=== PATIENT | male | born 1975 | race Caucasian/White ===

== ENCOUNTER 2017-03-20 16:24 | Emergency (ER) | payer OTHER ==
[2017-03-20 16:36] VITALS: BP 129/83; PULSE 86; TEMP 98.1; BMI 25.8
--- NOTE | 2017-03-20 17:36 | PDOC ---
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 Patient also reports running with his boots on and feels slight discomfort to his right foot proximal to his right large toe. Patient does not have any gross deformity of left elbow or left foot. Patient denies any other injuries. Patient is up-to-date with tetanus. Patient denies any numbness of the left arm , wrist pain or shoulder pain or any pain in fingers left hand. 03/20/17 17:58 03/20/17 18:01 Occurred: reports: just prior to arrival Severity: reports: moderate (LEFT ELBOW PAIN, ABRASION, ) Pain Location: reports: lower extremity (RT. FOOT PROXIMAL TO RT. LARGE TOE), upper extremity (LEFT ELBOW ) Method of Injury: Yes: fall Modifying Factors: improves with: None Loss of Consciousness: no loss of consciousness Associated Symptoms (Fall): denies symptoms Past History - Past Medical History Allergies/Adverse Reactions: Allergies Allergy/AdvReac Type Severity Reaction Status Date / Time No Known Allergies Allergy Verified 03/20/17 16:27 Home Medications: Ambulatory Orders NK [No Known Home Medication] 03/20/17 Other medical history: denies - Suicide/Smoking/Psychosocial Hx Smoking Status: No Smoking History: Never smoked Number of Cigarettes Smoked Daily: 0 Information on smoking cessation initiated: No Hx Alcohol Use: No Drug/Substance Use Hx: No Substance Use Type: Alcohol Review of Systems - Review of Systems Able to Perform ROS?: Yes Constitutional: No: Symptoms Reported HEENTM: No: Symptoms Reported Respiratory: No: Symptoms reported Cardiac (ROS): No: Symptoms Reported ABD/GI: No: Symptoms Reported : No: Symptoms Reported Musculoskeletal: Yes: Joint Pain (LEFT ELBOW, RT. FOOT, PROXIMAL TO LARGE TOE ) Integumentary: Yes: Other (ABRASION LEFT ELBOW QUARTER SIZE) Neurological: No: Symptoms reported *Physical Exam - Vital Signs Last Vital Signs Temp Pulse Resp BP Pulse Ox 98.1 F 86 20 129/83 100 03/20/17 16:28 03/20/17 16:28 03/20/17 16:28 03/20/17 16:28 03/20/17 16:28 - Physical Exam General Appearance: Yes: Appropriately Dressed Neck: negative: Lymphadenopathy (R), Lymphadenopathy (L), Rigidity, Tender lateral, Tender midline Respiratory/Chest: positive: Lungs Clear, Normal Breath Sounds. negative: Chest Tender, Respiratory Distress Cardiovascular: positive: Regular Rhythm, Regular Rate, S1, S2 Vascular Pulses: Dorsalis-Pedis (R): 4+ Musculoskeletal: positive: Normal Inspection. negative: CVA Tenderness, CVA Tenderness (R), CVA Tenderness (L), Decreased Range of Motion, Vertebral Tenderness Extremity: positive: Normal Capillary Refill, Normal Range of Motion (LEFT ELBOW , RT. FOOT PROXIMAL TO LARGE TOE ), Tender (LEFT ELBOW, RT. FOOT PROXIMAL TO RT. LARGE TOE). negative: Normal Inspection (LEFT ELBOW ABRASION), Swelling Integumentary: positive: Other (ABRASION QUARTER SIZE LEFT ELBOW ) Neurologic: positive: Normal Response, Motor Strength 5/5 (UPPER AND LOWER EXTREMITIES), Respond to painful stimul (LEFT ARM, RT. FOOT, LEG ), Responsive. negative: Numbness, Sensory Deficit (UPPER AND LOWER EXTREMITIES) Procedures - Consent Consent obtained: From Patient - Additional Procedures Progress: 03/20/17 17:49 Left elbow abrasion with Betadine and normal saline 0.9% dried areas tiny amount of bacitracin applied with Band-Aid. 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 Patient also reports running with his boots on and feels slight discomfort to his right foot proximal to his right large toe. Patient does not have any gross deformity of left elbow or left foot. Patient denies any other injuries. Patient is up-to-date with tetanus. Patient denies any numbness of the left arm, wrist pain or shoulder pain or any pain in fingers left hand. Left elbow pain r/o fracture left elbow abrasion rt foot pain PLAN: xray left elbow no fracture noted pt. offered ibuprofen does not want anything for pain abrasion on left elbow cleansed with Betadine and normal saline 0.9% dried and bacitracin ointment applied with bandage *DC/Admit/Observation/Transfer Diagnosis at time of Disposition: Elbow pain, left, Foot pain, right Abrasion of elbow, left Qualifiers: Encounter type: initial encounter Qualified Code(s): S50.312A - Abrasion of left elbow, initial encounter - Discharge Dispostion Disposition: HOME Condition at time of disposition: Stable - Referrals Referrals: Jaylon Langston MD [Staff Physician] - - Patient Instructions Additional Instructions: Cleanse abrasion on left elbow twice daily with antibacterial soap and water pat dry and apply tiny amount of bacitracin or Neosporin ointment and apply when out of the home and let air out at night Take ibuprofen or Advil as needed as directed by arterial embalmer for pain Follow-up with orthopedist if pain continues next week Return to emergency room if any numbness of right foot or left arm or weakness of arm or right foot or leg or any new symptoms develop Patient voiced understanding of discharge instructions and all questions were answered
== END 2017-03-20 18:11 | disposition home or self-care (01) ==
LOC: JERFT 16:24
DX: S50.312A Abrasion of left elbow, initial encounter (principal); W18.39XA Other fall on same level, initial encounter; Y93.02 Activity, running; Y92.89 Other specified places as the place of occurrence of the external cause; Y99.0 Civilian activity done for income or pay; Y35.891A Legal intervention involving other specified means, law enforcement official injured, initial encounter
CPT/HCPCS: 73070-TC-LT; 99281-25